=== PATIENT | male | born 1985 | race Caucasian/White ===

== ENCOUNTER 2017-10-04 09:28 | Inpatient (IN) | payer OTHER, SELFPAY ==
[2017-09-21 13:39] VITALS: BMI 25.0
[2017-10-04] VITALS (15 sets, daily range): BP systolic 110–132; BP diastolic 59–96; PULSE 80–106; RESP 11–20; TEMP 36.5–36.9; O2SAT 94–99; BMI 25.0
--- NOTE | 2017-10-04 | DI.RAD.S_ITS ---
PROCEDURE: XR LUMBAR SPINE 2-3V INDICATIONS: L5-S1 TLIF TECHNIQUE: 2 views of the lumbar spine were acquired. COMPARISON: [facility] Outside Film, CR, XR LUMBAR SPINE 2 OR 3 VIEWS, 05/18/2017, 9:21. FINDINGS: Bones: AP and lateral views obtained intraoperatively show placement of a disc spacer at L5-S1 with posterior fusion, transpedicular screws and vertical connecting rods L5-S1 bilaterally. Soft tissues: Overlying bowel gas pattern is normal. No suspicious soft tissue calcifications. IMPRESSION: Intraoperative imaging L5-S1 discectomy and fusion Dictated by: Alex Simms M.D. on 10/04/2017 at 15:19 Approved by: Alex Simms M.D. on 10/04/2017 at 15:20
[2017-10-04] MEDS: LACTATED RINGERS 1,000 ML 42 ML IV ×2 (09:54→14:31)
--- NOTE | 2017-10-04 12:18 | PM.PREOP ---
Pre-operative Note Interval Note Pre-op Check: Yes History & Physical Reviewed by Physician, Yes Exam Performed and Yes History & Physical exam performed today by Physician Changes: No
[2017-10-04] MEDS: CEFAZOLIN 2 GM/100 ML FROZ.PIGGY IV ×2 (12:55→22:11)
--- NOTE | 2017-10-04 13:26 | SUR.OPER ---
Prone on spine table, head in foam head support, padded chest and pelvic supports, gel pad at knees, lower legs supported by pillows; nipples, genitalia and toes free of pressure, arms secured on foam padded arm boards at <90 degrees abduction. Tape over blanket at thigh secured to table. gel pad between heels
[2017-10-04] MEDS: BUPIVACAINE LIPOSOME 266 MG/20 ML VIAL INJ (13:37)
[2017-10-04] MEDS: BUPIVACAINE 0.25% W/ EPI VIAL 50 ML INJ (13:40)
--- NOTE | 2017-10-04 14:53 | P.OP_ITS ---
Operative Date/Time/Diagnoses Date of procedure: 10/04/17 Time of procedure: 12:51 Pre-op diagnosis: 1. L5-S1 spinal stenosis 2. L5-S1 spondylosis with radiculopathy Post-op diagnosis: same Procedure & Clinicians Procedure: 1. L5-S1 Postero-lateral and posterior interbody fusion 2. L5-S1 interbody cage placement. 3. L5-S1 decompressive laminectomy with bilateral facetecomies 4. L5-S1 Posterior non-segmental instrumentation 5. [place] of bone marrow from iliac crest 6. Utilization of microsurgical technique and operating microscope Same procedure as scheduled: Yes Indications: Patient has been having chronic back pain and worsening lumbar radiculopathy. Patient failed multiple conservative management with worsening pain weakness and numbness in her lower extremity. Patient has been having difficulty performing activity of daily living. After discussing risks benefits of treatment options, patient elected proceed with surgery. Surgeon: Jamar Del Rosario Subgrade Roller Operator: Lu Cohen'Brien Click Yes if Unassisted: No Anesthesia Type: General Operative Notes Closure Type: primary Specimen(s): none sent Implants & Drains: Globus Revolve screws, Rise cage Applied: catheter Estimated Blood Loss (mL): 50 Blood products transfused: none Procedure in detail: Patient was seen in the preoperative area. Risks and benefits of the surgery was discussed with the patient. Informed consent was obtained from the patient and placed in the chart. Surgical site was marked. Patient was taken to the operative room. General anesthesia was administered. Prophylactic antibiotic was given to the patient less than 30 min before the incision was made. Patient was placed into a prone position on the Eulogio table. Patient's back was then prepped and draped in the sterile fashion. Time- out was performed at this time. Using AP and lateral C-arm imaging the interval between L5-S1 was identified and marked on patient's back. A 2 inch incision 2 in from midline was made on the left side first. The fascia was incised in line with skin incision. Globus MARS retractors was placed inside the incision and docked onto the L5 lamina. Using microsurgical technique and operating microscope, a L5 laminectomy and L5- S1 facetectomy was performed using a Kerrison rongeur. The disc space at L5-S1 was identified. And a total diskectomy was performed at L5-S1 level. The endplates were decorticated using a rasp and shaver. The total diskectomy and decortication was performed at L5-S1 level in order to to accomplish a L5-S1 fusion. The local bone from the laminectomy and facetectomy was saved for local bone grafting. After the total diskectomy and decortication was completed , Globus viacell bone graft material was combined with local bone that was harvested earlier. At this time, a separate skin is incision was made over the iliac crest. A Jamshidi needle was inserted into the iliac crest through a separate skin incision. 5 cc of bone marrow aspiration was obtained through the separate skin incision using a Jamshidi needle from the iliac crest. The bone marrow aspiration was combined with local bone and the via cell bone grafting material. The bone grafting material was placed into the L5-S1 interbody space along with a expandable cage. The cage was expanded to its maximum height using the torque limiting screwdriver. At this time a mirror image incision was made on the right side. The fascia was incised in line with the skin incision. Globus MARS retractor was inserted and docked onto the L5-S1 posterolateral gutter. Using the power drill, posterior- lateral decortication was performed at L5-S1 level until bleeding cortical bone was identified. The remaining bone grafting material was placed into the L5-S1 posterior lateral gutter he order to accomplish posterolateral fusion at the L5- S1 level. Using the double C-arm technique, pedicle screws were placed into the L5-S1 pedicles bilaterally. This was done by placing the Jamshidi needle into the pedicles, then placing the guidewires over the Jamshidi needle, and finally placing the cannulated screws over the guidewires bilaterally. After the pedicle screws were placed, 2 titanium rods was locked into the heads of the pedicle screws using locking caps and torque limiting screwdriver. After all the hardware was placed, and confirmed with AP and lateral C-arm imaging, the wound was then irrigated with sterile normal saline and packed with Ray-Davey gauze for 3 min to accomplish hemostasis. After the gauze was removed the deep fascia was closed with #1 Vicryl suture. The subcutaneous layer was closed with 2-0 Vicryl. The skin was closed with skin noah. Patient tolerated the procedure well. There were no complications. Complications: none Condition: stable Disposition: PACU Plan for aftercare: Admit to inpatient hospital
[2017-10-04] MEDS: fentaNYL 100 MCG/2 ML INJ 50 MCG IV ×2 (15:10→15:15)
[2017-10-04] MEDS: HYDROMORPHONE 2 MG INJ 0.25 MG IV ×4 (15:20→15:35)
[2017-10-04] MEDS: hydrOXYzine 50 MG/ML INJ 25 MG IM (15:30)
--- NOTE | 2017-10-04 16:47 | PC.NURSE ---
patient up to room at 1605, a&ox4, 94% on ra, and rates pain 5/10. patient denies nausea, sob, dizziness even when up ambulating to br. patient mobility is excellent, one person sba with walker. voided successfully in br, 700 ml clear and joseluis. heart rate slightly elevated at 92 bpm but regular. lung sounds are clear, bowel tones present. patient states he feels very hungry. cms intact, patient denies any tingling or numbness, states he feels sensation to ble, demonstrates he can ambulate and wiggle toes. dressing to lower back is c/d/i. patient has been oriented to room and use of call light. patient encouraged to call and not get up by himself. patient instructed on how to get in and out of bed by this RN, no bending at waist, no twisting, etc. will continue to monitor.
[2017-10-04] MEDS: SODIUM CHLORIDE 0.9% 1,000 ML 100 ML IV (17:10)
[2017-10-04] MEDS: hydrOXYzine pamoate 25 MG CAPSULE PO ×2 (17:12→22:08)
[2017-10-04] MEDS: OXYCODONE IR 5 MG TABLET 10 MG PO (18:56)
[2017-10-04] MEDS: DOCUSATE 100 MG CAPSULE PO (22:08)
[2017-10-04] MEDS: SENNOSIDES 8.6 MG TABLET 17.2 MG PO (22:08)
[2017-10-05] VITALS (7 sets, daily range): BP systolic 111–129; BP diastolic 52–69; PULSE 79–95; RESP 16–18; TEMP 36.4–37.1; O2SAT 96–98
[2017-10-05] MEDS: hydrOXYzine pamoate 25 MG CAPSULE PO ×5 (02:11→20:52)
[2017-10-05] MEDS: OXYCODONE IR 5 MG TABLET 10 MG PO ×5 (02:11→20:52)
[2017-10-05] MEDS: ACETAMINOPHEN 325 MG TABLET 650 MG PO ×2 (04:02→09:27)
[2017-10-05] MEDS: SODIUM CHLORIDE 0.9% 1,000 ML 100 ML IV (04:27)
[2017-10-05 05:43] LABS: Hematocrit 40.6 % (41-53); Hemoglobin 14.3 g/dL (13.5-17.5)
[2017-10-05] MEDS: CEFAZOLIN 2 GM/100 ML FROZ.PIGGY IV (06:25)
--- NOTE | 2017-10-05 07:39 | PM.PNPO.1 ---
Subjective Date Patient Seen: 10/05/17 Time Patient Seen: 07:39 Interval history: PD 1. L5-S1 TLIF [address] Dr. Del Rosario. States pain is about 1-2 in bed but when up is very painful. Still some numbness in left leg. present in room. Has not been up with PT yet. Exam Vital Signs (past 8 hours): - 10/05/17 00:04 10/05/17 01:02 10/05/17 04:47 Temperature 97.6 F 98.0 F Pulse Rate 90 85 Respiratory Rate 18 18 Blood Pressure 121/52 H 127/64 H Pulse Oximetry 96 96 98 Oxygen Delivery Method Room Air Oxygen Flow Rate 0 Narrative Exam Narrative: Pt in bed. A&O x3. Back dressing CDI. Numbness in left foot. 5/5 BLE. Samson calves soft and nontender. Objective Labs Result Diagrams: 10/05/17 05:27 Labs: Laboratory Results - last 24 hr 10/05/17 05:27 Hgb 14.3 Hct 40.6 L Assessment & Plan Post-op Postoperative Procedures Operation Date: 10/04/17 11:45 Actual Procedures Side Surgeon p L5-S1 TLIF Not Applicable Jamar Del Rosario MD PD 1. Continue pain meds. Ambulate with PT. DVT prophylaxis with foot pumps. Plan for d/c home tomorrow. Time Spent With Patient less than 15 minutes
[2017-10-05] MEDS: DOCUSATE 100 MG CAPSULE PO ×2 (09:22→20:51)
--- NOTE | 2017-10-05 09:50 | PT.IIE ---
Current Diagnoses Other spondylosis with radiculopathy, lumbar region (10/04/17) Spinal stenosis, lumbar region without neurogenic claudication (10/04/17) Surgery Performed Operation Date: 10/04/17 11:45 Actual Procedures p L5-S1 TLIF(Not Applicable) - Jamar Del Rosario MD Surgical History (Last Updated 09/21/17 @ 14:16 by Francisca Stinson, RN) H/O right inguinal hernia repair (Acute) History of appendectomy (Acute) S/P epidural steroid injection (Acute) Medical History (Last Updated 09/21/17 @ 14:25 by Francisca Stinson, RN) Back pain (Acute) History of hepatitis A (Acute ~2004) Lumbar disc disease with radiculopathy (Acute) Osteoarthritis of spine with radiculopathy, lumbar region (Acute) Palpitations (Acute) Spinal stenosis of lumbar region with radiculopathy (Acute) Physical Therapy Inpatient Evaluation/Re-Eval Medical Review Prior Functional Status Medical History Reviewed Yes Diet/Fluid Consistency Regular Communication no known deficits Mobility and Gait completely independent Activities of Daily Living and IADL's completely independent Prior Functional Level (Other details) 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 Additional Social History Comment Has an adjustable bed at home Physical Therapy Current Condition Current Condition Evaluation Date 10/05/17 Treatment Diagnosis L5-S1 lami-fusion Onset Date 10/04/17 Precautions Lumbar Precautions Log Roll No Twisting Limit Bending Lifting Restriction of 10 lbs Gait Belt above Incisional Area Weight Bearing Status Weight Bearing Status Weight Bear as Tolerated Subjective Physical Therapy Visit Type Type Initial Evaluation Visit Start Time 08:30 Visit Stop Time 09:02 Total Visit Minutes 32 Physical Therapy Visit Comments Patient Comments Pt reports doing well, expressing interest in figuring out what his future activity restrictions are going to be. Short Term Goals go home Therapy Pain Assessment Pain When Pain Assessed During Mobility Pain Present Pain Present Pain Reported Location Back Intensity 4 Scale Used Numeric (1 - 10) Description Aching Pressure Tender With Movement Pain Management Techniques Apply Cold Modification of Treatment Re-positioning Timing of Activity with Medications PT-Bed Mobility Assessment Rolling Type of Rolling Log Rolling Level of Assist Independent Supine to Sit Supine to Sit Independent Sit to Supine Sit to Supine Independent Scooting Scooting to Edge of Bed Independent PT-Transfer Assessment Sit to and From Stand Sit to and from Stand Independent Equipment Transfer Assistive Device None Transfers Transfer Destination Chair Transfer Technique Stand Step Pivot Transfer Ability Level of Assist Independent Comments Mobility Comments Pt is a little slow but able to complete all mobility without physical assist, and very stable. Gait Assessment Gait Gait Assistance Required: Independent Distance (Feet) (feet) 225 Assistive Devices Assistive Device None Gait Deviations General Gait Pattern Within Normal Limits Factors Limiting Gait Function Factors Limiting Gait Function Decreased Sensation Decreased Strength Comments Gait Comments Pt is stable overall with gait but does look to have a little instability in the L knee, but not enough to affect balance. Pt also reports ongoing numbness in the L toes but can now feel L heel where as before he was unable to do so. Stair Climbing Assessment Evaluation Level of Assist On Stairs Independent Devices Stair Climbing Assistive Devices None Technique/Endurance Stair Climbing Direction Descend Stair Climbing Technique Step to Step PT-Balance Assessment Sitting Balance and Reactions Static Sitting Balance Ability Normal Dynamic Sitting Balance Ability Normal Standing Balance and Reactions Static Standing Balance Ability Normal Dynamic Standing Balance Ability Good Orientation Orientation/Cognition Level of Alertness Alert Orientation Name Age Birthday Month Date Year Day of Week Place Situation Language Function Ability No Deficits Noted Safety Awareness Understands Safety Issues Memory Description No Deficits Noted Gross Range of Motion Upper Extremity ROM Assessment Within Functional Limits Lower Extremity ROM Assessment Within Functional Limits Strength Upper Extremity Strength Assessment Within Functional Limits Comments Strength Comments BLE not formally assessed but functionally WNL, there was observed L knee instability Physical Therapy Treatment Education Education Provided Precautions Post-Op Packet Safety PT Summary Assessment and Plan Potential Rehabilitation Potential Excellent Status of Condition at Evaluation Stable Summary Impairments Pain Strength Sensation Progress Towards Goals Safe For Discharge Goals Met Assessment Summary Pt is POD#1 for L5-S1 posterolateral lami and posterior interbody fusion. Despite increased pain levels with mobility, pt is able to perform bed mobility, transfers, and gait at an independent level. Pt able to repeat back all precautions and rationale behind them, as well as demo ideal movement strategies for all functional movements. While pt is doing well with mobility, he is below his reported functional baseline. Patient does have potential for functional improvement. Pt is safe to discharge home but recommend pt participate in outpatient PT to optimize pelvic/core stability and movement strategies as well as prevent future injury. Pt in agreement with this plan. Goals Bed Mobility Goal Independent Transfer Goal Independent Gait Goal Independent Frequency of Treatment Frequency Of Treatment Discharge Recommendations To Nursing Amount of Assist Needed Independent Discharge Recommendations PT Discharge Recommendations Home with Assistance Outpatient PT
--- NOTE | 2017-10-05 10:49 | OT.IP.EVAL ---
Current Diagnoses Other spondylosis with radiculopathy, lumbar region (10/04/17) Spinal stenosis, lumbar region without neurogenic claudication (10/04/17) Surgery Performed Operation Date: 10/04/17 11:45 Actual Procedures p L5-S1 TLIF(Not Applicable) - Jamar Del Rosario MD Past Medical History (Last Updated 09/21/17 @ 14:25 by Francisca Stinson, RN) Back pain (Acute) History of hepatitis A (Acute ~2004) Lumbar disc disease with radiculopathy (Acute) Osteoarthritis of spine with radiculopathy, lumbar region (Acute) Palpitations (Acute) Spinal stenosis of lumbar region with radiculopathy (Acute) Surgical History (Last Updated 09/21/17 @ 14:16 by Francisca Stinson, RN) H/O right inguinal hernia repair (Acute) History of appendectomy (Acute) S/P epidural steroid injection (Acute) Occupational Therapy Inpatient Evaluation/Re-Eval M1 PT/OT-IP Prior Functional Status Start: 10/05/17 08:32 Freq: NEEDED Status: Active Protocol: Document 10/05/17 10:49 PJM (Rec: 10/05/17 15:53 PJM [id number]) Medical Review Prior Functional Status Medical History Reviewed Yes Diet/Fluid Consistency Regular Communication WNL Mobility and Gait completely independent Activities of Daily Living and IADL's completely independent Prior Functional Level (Other details) 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 M2 OT-IP Current Condition Start: 10/05/17 15:42 Freq: Status: Active Protocol: Document 10/05/17 10:49 PJM (Rec: 10/05/17 15:53 PJM [id number]) Occupational Therapy Current Condition Current Condition Evaluation Date 10/05/17 Treatment Diagnosis decreased self care after L5- S1 TLIF Diagnosis Onset Date 10/04/17 Post Operative Precautions Lumbar Precautions Log Roll No Twisting Limit Bending Lifting Restriction of 10 lbs Gait Belt above Incisional Area Weight Bearing Status Weight Bearing Status Weight Bear as Tolerated M3 OT- IP Subjective and Pain Start: 10/05/17 15:42 Freq: Status: Active Protocol: Document 10/05/17 10:49 PJM (Rec: 10/05/17 15:53 PJM [id number]) OT- Subjective Occupational Therapy Visit Type Type Initial Evaluation Visit Start Time 10:10 Visit Stop Time 10:49 Total Visit Minutes 39 Occupational Therapy Visit Comments Patient Comments I am pretty comfortable in this position in bed. We have an adjustable power bed at home. Patient/Caregiver Goals to return to work, be able to golf OT Pain Assessment Pain When Pain Assessed At Rest Pain Present Pain Present Pain Reported Location Back Intensity 2 Scale Used Numeric (1 - 10) Description Aching M4 OT- IP ADL's Start: 10/05/17 15:42 Freq: Status: Active Protocol: Document 10/05/17 10:49 PJM (Rec: 10/05/17 15:53 PJM [email or web address]) OT [id number] General Evaluation Self-Feeding Ability Independent OT ADL-Grooming General Evaluation Grooming Ability Independent Comments OT Grooming Comments provided education re: body mechanics at sink OT ADL-Oral Care General Eval Oral Care Ability Independent Comments Oral Care Comments provided education re: body mechanics at sink OT ADL-Dressing General Eval Upper Body Dressing Ability Independent Lower Body Dressing Ability Minimal Assistance Areas Needing Assistance Socks Comments OT Dressing Comments Pt declines packaging assembler or sock aid as will provide 24 hr assist at home. He wears slip on shoes OT ADL-Toileting General Evaluation Toileting Ability Independent Comments OT Toileting Comments Provided education re: body mechanics OT ADL-Bathing Comments OT Bathing Comments pt declined; provided education re: body mechanics; will obtain long bath sponge for pt PRN M5 OT- IP IADL's Start: 10/05/17 15:42 Freq: Status: Active Protocol: Document 10/05/17 10:49 PJM (Rec: 10/05/17 15:53 PJM [id number]) OT-Instrumental Activities of Daily Living Deficits IADL Deficits Identified Deficits Home Safety Awareness Awareness of Need for Assistance at Home Good Awareness Ability to Problem Solve Emergency Able to Problem Solve Situations Medication Management Medication Management No Deficits Identified Money Management Money Management No Deficits Identified Meal Preparation Meal Preparation Caregiver Provides Assist Yard Spotter Yard Spotter Caregiver Provides Assist Driving Driving Caregiver Provides Assist Driving Comments until pt able M6 OT- IP Functional Cognition Start: 10/05/17 15:42 Freq: Status: Active Protocol: Document 10/05/17 10:49 PJM (Rec: 10/05/17 15:53 PJM [id number]) Cognitive Factors Limiting Selfcare Function Cognitive Ability Level of Alertness Alert Patient Orientation Name Age Birthday Month Date Year Day of Week Place Situation Attention Span Ability Capable of Focused Attention Capable of Sustained Attention Ability to Follow Commands Able to Follow One Step Commands Memory Description No Deficits Noted Safety Awareness No Deficits Noted Executive Function Ability No Deficits Noted Cognitive Comments Cognitive Assessment Comments Pt recalls and states 3/3 lumbar precautions. OT- Vision and Hearing OT- Hearing Assessment OT- Hearing Assessment WFL OT- Vision Assessment Visual Acuity WFL M7 OT- IP Mobility and Balance Start: 10/05/17 15:42 Freq: Status: Active Protocol: Document 10/05/17 10:49 PJM (Rec: 10/05/17 15:53 PJM NR) OT-Transfer Assessment Technique Transfer Destination Car Toilet Comments Mobility Comments Provided education re: resources for raised toilet seat for pt use at home, sitting posture and chair selection. OT- Gait Assessment Comments Gait Ability Comments See P.T. note OT- Balance Assessment Comments Other Balance Tests/Deviations/Treatment See P.T. note : M8 OT- IP Objective Assessments Start: 10/05/17 15:42 Freq: Status: Active Protocol: Document 10/05/17 10:49 PJM (Rec: 10/05/17 15:53 PJM [email or web address]) OT Gross Range of Motion Upper Extremity Range of Motion Assessment Within Functional Limits OT Strength Upper Extremity Strength Assessment Within Functional Limits OT- Coordination Assessment Comments Coordination Comments BUE WFL OT-Muscle Tone Assessment Muscle Tone WNL Yes OT Sensation Assessment Comments Summary Comments Pt denies deficits in BUEs Edema Edema Absent M9 OT- IP Assessment and Plan Start: 10/05/17 15:42 Freq: Status: Active Protocol: Document 10/05/17 10:49 PJM (Rec: 10/05/17 15:53 PJM NR) OT Summary Assessment and Plan Potential Rehabilitation Potential Good Analytic Complexity at Evaluation Low Summary OT Impairments Pain Assessment Summary Low complexity evaluation and all OT education completed in one session with pt/ re: lumbar spine precautions, body mechanics, adapted ADL techniques and equipment options. Pt plans to discharge home tomorrow with 24 hr assist from capable . No further OT services needed. Treatment Plan Other Treatment Recommendations and Next D/C OT Treatment Focus Discharge Recommendations OT Discharge Recommendations Home with Assistance Home Equipment Needs to obtain RTS and long bath sponge for pt PRN.
--- NOTE | 2017-10-05 14:18 | CM.DANOTE ---
DCP/Assessment: Reviewed chart. Patient admitted to [facility] for TLIF performed on 10-04-[address] Del Rosario. PCP is Dr. Phipps at the [facility]. Primary payor is 1)[employer]. Met with patient and spouse at bedside explained CM/SW role. Patient alert and oriented at time of visit. Patient reports that he is currently active . Patient reports that he plans to go home when medically stable. Patient reports that he is ambulating in hallway. Patient denies the need for a walker but spouse interested in borrowing DME i.e. shower bench. Patient and spouse have loan closet information for [employer]. Spouse plans to call this afternoon. P: Anticipate home when stable. ELGIN Gomes
--- NOTE | 2017-10-05 19:10 | PC.NURSE ---
Angelica shift- Pt up indep for BRP and ambulating in hallways. VSS, CMS ++, Lower back coversite drsg CDI. Uses call light for needs. Call light in reach.
[2017-10-05] MEDS: SENNOSIDES 8.6 MG TABLET 17.2 MG PO (20:51)
[2017-10-05] MEDS: SODIUM CHLORIDE 0.9% FLUSH 10 ML IV (21:12)
[2017-10-06 00:10] VITALS: BP 127/66; PULSE 86; RESP 16; TEMP 36.7; O2SAT 98
[2017-10-06] MEDS: OXYCODONE IR 5 MG TABLET 10 MG PO ×4 (00:14→12:56)
[2017-10-06] MEDS: hydrOXYzine pamoate 25 MG CAPSULE PO ×2 (00:15→05:03)
[2017-10-06 04:50] VITALS: BP 127/69; PULSE 86; RESP 16; TEMP 36.6; O2SAT 98
--- NOTE | 2017-10-06 07:38 | PM.DS.1 ---
History of Present Illness Date Patient Seen: 10/06/17 Time Patient Seen: 07:38 Chief complaint: [id number] Narrative: Patient is a 32-year-old male with a history of low back pain. He failed conservative measures and elected to proceed with the L5-S1 TLIF with Dr. Del Rosario at [facility]. Details of the patient's H&P can be found in the chart. Discharge Providers Date of admission: 10/04/17 09:28 Consults: 10/04/17 16:02 Consult to Occupational Therapy Evaluate & Treat Comment: Physician Instructions: Evaluate and treat Consult to Physical Therapy Evaluate & Treat Comment: Physician Instructions: Evaluate and Treat Discharge provider: Mallorie Hitchcock PA-C Summary Discharge Diagnosis: L5-S1 spinal stenosis L5-S1 spondylosis with radiculopathy Hospital Course: Patient was admitted taken to the operating room where he had L5-S1 TLIF with Dr. Del Rosario. He recovered well was transferred to floor for further care. Postop day 2 pain was under control. Patient was eating and drinking, ambulating well and urinating without difficulty. He was ready to be discharged home. He will be discharged home with rxs for oxycodone and vistaril. He will f/u in the office in 10-14 days. Status at Discharge Cognitive/behavioral status at discharge: A&O x3. Functional status at discharge: uses cane/walker Overall status at discharge: patient is progressing back to baseline Time Spent with Patient Less than 30 minutes Exam Vital Signs (past 8 hours): - 10/06/17 00:10 10/06/17 04:50 Temperature 98.1 F 97.9 F Pulse Rate 86 86 Respiratory Rate 16 16 Blood Pressure 127/66 H 127/69 H Pulse Oximetry 98 98 Oxygen Delivery Method Room Air Oxygen Flow Rate 0 Narrative Exam Narrative: Patient in bed. Appears comfortable. Alert and orient x3. Vac dressing clean dry and intact. Some numbness in the left foot. 5/5 BLE. Bilateral calves soft and nontender. Good distal pulses. Objective Labs Result Diagrams: 10/05/17 05:27 Discharge Plan Discharge Plan Patient Disposition: Home, Self-Care Discharge comment: Do not take anti-inflammatories for 90 days postop. Discharge Med Rec/Prescriptions Prescriptions: New acetaminophen 325 mg Tablet 650 mg PO Q6HR PRN (Reason: Pain, Mild (1-3)) Qty: 0 RF: 0 hydroxyzine pamoate 25 mg Capsule 25 mg PO Q4HR PRN (Reason: Nausea And Vomiting) Qty: 40 RF: 0 oxycodone 10 mg tablet 10 mg PO Q3-4H PRN (Reason: Pain, Severe (7-10)) Qty: 60 RF: 0 Continue fluticasone [Flonase Allergy Relief] 50 mcg/actuation [place],Suspension 2 spray INTRANASAL DAILY RF: 0 Discontinued naproxen sodium [Aleve] 220 mg Tablet 440 mg PO PRN PRN (Reason: Pain) RF: 0 Follow up/Referrals: Jamar Del Rosario MD [Physician] - (Follow-up as scheduled time and date. Contact office with any issues or concerns.) Provider Discharge Instructions Diet: Diet as Tolerated Activity: Activity as tolerated. Ambulate with assistance of a walker/cane. No bending, lifting or twisting. Cold/Heat Therapy: Apply ice as needed for pain and swelling. Wound Care Report to your healthcare provider any signs of infection, such as:: chills, fever, increased pain and unusual drainage Dressing: Keep dressing intact. May shower. Visit Report/Discharge Packet Instructions: DI for Transforaminal Lumbar Interbody Fusion Visit Report Forms: Stroke Signs & Symptoms Discharge Data Attending Provider: Jamar Del Rosario Admit Date/Time: 10/04/17 09:28
--- NOTE | 2017-10-06 07:41 | P.DS_ITS ---
History of Present Illness Date Patient Seen: 10/06/17 Time Patient Seen: 07:38 Chief complaint: [id number] Narrative: Patient is a 32-year-old male with a history of low back pain. He failed conservative measures and elected to proceed with the L5-S1 TLIF with Dr. Del Rosario at [facility]. Details of the patient's H&P can be found in the chart. Discharge Providers Date of admission: 10/04/17 09:28 Consults: 10/04/17 16:02 Consult to Occupational Therapy Evaluate & Treat Comment: Physician Instructions: Evaluate and treat Consult to Physical Therapy Evaluate & Treat Comment: Physician Instructions: Evaluate and Treat Discharge provider: Mallorie Hitchcock PA-C Summary Discharge Diagnosis: L5-S1 spinal stenosis L5-S1 spondylosis with radiculopathy Hospital Course: Patient was admitted taken to the operating room where he had L5-S1 TLIF with Dr. Del Rosario. He recovered well was transferred to floor for further care. Postop day 2 pain was under control. Patient was eating and drinking, ambulating well and urinating without difficulty. He was ready to be discharged home. He will be discharged home with rxs for oxycodone and vistaril. He will f/u in the office in 10-14 days. Status at Discharge Cognitive/behavioral status at discharge: A&O x3. Functional status at discharge: uses cane/walker Overall status at discharge: patient is progressing back to baseline Time Spent with Patient Less than 30 minutes Exam Vital Signs (past 8 hours): - 10/06/17 00:10 10/06/17 04:50 Temperature 98.1 F 97.9 F Pulse Rate 86 86 Respiratory Rate 16 16 Blood Pressure 127/66 H 127/69 H Pulse Oximetry 98 98 Oxygen Delivery Method Room Air Oxygen Flow Rate 0 Narrative Exam Narrative: Patient in bed. Appears comfortable. Alert and orient x3. Vac dressing clean dry and intact. Some numbness in the left foot. 5/5 BLE. Bilateral calves soft and nontender. Good distal pulses. Objective Labs Result Diagrams: 10/05/17 05:27 Discharge Plan Discharge Plan Patient Disposition: Home, Self-Care Discharge comment: Do not take anti-inflammatories for 90 days postop. Discharge Med Rec/Prescriptions Prescriptions: New acetaminophen 325 mg Tablet 650 mg PO Q6HR PRN (Reason: Pain, Mild (1-3)) Qty: 0 RF: 0 hydroxyzine pamoate 25 mg Capsule 25 mg PO Q4HR PRN (Reason: Nausea And Vomiting) Qty: 40 RF: 0 oxycodone 10 mg tablet 10 mg PO Q3-4H PRN (Reason: Pain, Severe (7-10)) Qty: 60 RF: 0 Continue fluticasone [Flonase Allergy Relief] 50 mcg/actuation [place],Suspension 2 spray INTRANASAL DAILY RF: 0 Discontinued naproxen sodium [Aleve] 220 mg Tablet 440 mg PO PRN PRN (Reason: Pain) RF: 0 Follow up/Referrals: Jamar Del Rosario MD [Physician] - (Follow-up as scheduled time and date. Contact office with any issues or concerns.) Provider Discharge Instructions Diet: Diet as Tolerated Activity: Activity as tolerated. Ambulate with assistance of a walker/cane. No bending, lifting or twisting. Cold/Heat Therapy: Apply ice as needed for pain and swelling. Wound Care Report to your healthcare provider any signs of infection, such as:: chills, fever, increased pain and unusual drainage Dressing: Keep dressing intact. May shower. Visit Report/Discharge Packet Instructions: DI for Transforaminal Lumbar Interbody Fusion Visit Report Forms: Stroke Signs & Symptoms Discharge Data Attending Provider: Jamar Del Rosario Admit Date/Time: 10/04/17 09:28
[2017-10-06 07:54] VITALS: BP 138/78; PULSE 88; RESP 16; TEMP 36.6; O2SAT 98
[2017-10-06] MEDS: DOCUSATE 100 MG CAPSULE PO (09:02)
[2017-10-06] MEDS: SODIUM CHLORIDE 0.9% FLUSH 10 ML IV (09:04)
== END 2017-10-06 13:24 | disposition home or self-care (01) | DRG 455 ==
PROVIDERS: Admitting Provider Orthopaedic Surgery Orthopaedic Surgery of the Spine; Visit Provider Orthopaedic Surgery Orthopaedic Surgery of the Spine
PROC: 0SG30AJ Fusion of Lumbosacral Joint with Interbody Fusion Device, Posterior Approach, Anterior Column, Open Approach (ICD-10-PCS; principal; 2017-10-04 11:45)
DX: M48.07 Spinal stenosis, lumbosacral region (principal); M51.17 Intervertebral disc disorders with radiculopathy, lumbosacral region; M47.27 Other spondylosis with radiculopathy, lumbosacral region
CPT/HCPCS: 36415; 72100; 76001; 85014; 85018; 97116; 97161; 97165; 97535; C1776; C9290; J0330; J0690; J1100; J1170; J2405; J2704; J3010; J3410

== ENCOUNTER 2018-02-06 12:23 | Emergency (ER) | payer OTHER, SELFPAY ==
[2017-10-04 13:49] VITALS: BMI 25.0
--- NOTE | 2018-02-06 12:30 | ED.ABDPAIN ---
HPI - Abdominal Pain <SEBASTIAN Amaro - Last Filed: 02/06/18 22:06> General Chief Complaint: Fever Stated Complaint: Fever, nausea, worried about hernia Time Seen by Provider: 02/06/18 12:29 Source: patient Mode of arrival: ambulatory Limitations: no limitations History of Present Illness HPI narrative: 32-year-old male with history of right inguinal hernia that is a nonsmoker here for complaint of increased pain into his right inguinal area over the past few days. He denies any trauma to the area. He denies any recent strenuous activity. He does state that his last bowel movement was approximately 3 days ago. He has had some nausea. And decreased appetite. He was able to tolerate some p.o. intake earlier today with no vomiting. He states that he has had some chills although he has not checked to see if he has had temperature. Pain is limited to the right inguinal area. No abdominal pain. No flank pain. He denies any urinary symptoms. Increased pain with palpation to the area. MD complaint: other Related Data Home Medications Medication Instructions Recorded Confirmed fluticasone [Flonase Allergy 2 spray INTRANASAL DAILY 09/21/17 09/21/17 Relief] Previous Rx's Medication Instructions Recorded acetaminophen 650 mg PO Q6HR PRN #0 tab 10/06/17 hydroxyzine pamoate 25 mg PO Q4HR PRN #40 cap 10/06/17 oxycodone 10 mg PO Q3-4H PRN #60 tab 10/06/17 ondansetron 4 mg PO Q6-8H PRN #10 tab 02/06/18 Allergies Allergy/AdvReac Type Severity Reaction Status Date / Time No Known Drug Allergies Allergy Verified 02/06/18 12:32 Review of Systems <SEBASTIAN Amaro - Last Filed: 02/06/18 22:06> Constitutional Denies chills, Denies fever(s), Denies lethargy and Denies weakness Eyes Denies change in vision, Denies eye discharge, Denies irritation and Denies loss of vision ENT Ears, Nose, Mouth, and Throat: Denies change in voice, Denies neck pain and Denies sore throat Cardiovascular Denies chest pain, Denies irregular heart rhythm, Denies lightheadedness, Denies palpitations, Denies dyspnea, Denies dyspnea on exertion and Denies orthopnea Respiratory Denies cough, Denies dyspnea, Denies dyspnea on exertion and Denies wheezing Gastrointestinal Comments: Right inguinal pain Genitourinary Denies hematuria, Denies flank pain, Denies urinary incontinence and Denies urinary urgency Musculoskeletal Denies neck pain Integumentary/Breasts Denies pruritus, Denies erythema, Denies rash and Denies wounds Neurologic Denies confusion, Denies loss of vision and Denies weakness Psychiatric Denies anxiety, Denies confusion, Denies depression, Denies homicidal ideation and Denies suicidal ideation Endocrine Denies palpitations Hematologic/Lymphatic Denies easy bruising Allergic/Immunologic Denies wheezing Exam <SEBASTIAN Amaro - Last Filed: 02/06/18 22:06> Initial Vital Signs Initial Vital Signs: Vital Signs Temperature 99.1 F 02/06/18 12:32 Pulse Rate 106 H 02/06/18 12:32 Respiratory Rate 19 02/06/18 12:32 Blood Pressure 127/76 02/06/18 12:32 Pulse Oximetry 96 02/06/18 12:32 Const General: cooperative and well developed Nutritional Appearance: well nourished Orientation: alert, awake, oriented x3 and not confused [facility] Mouth: oral mucosae normal and moist mucous membranes Eyes Conjunctivae: conjunctivae normal Sclera: sclerae normal Pupils: PERRL EOM: EOM intact bilaterally Resp Effort & Inspection: normal respiratory effort, able to speak in complete sentences, no respiratory distress and no use of accessory muscles Auscultation: clear to auscultation bilaterally, no rales, no rhonchi and no wheezes Cardio Rate: regular rate Rhythm: regular rhythm Heart Sounds: no click, no gallops, no murmurs and no rubs Pulses: normal peripheral pulses GI Inspection: non-distended Palpation: soft, no hepatosplenomegaly, No guarding, No pulsatile mass and No tender Auscultation: normal bowel sounds General: No CVA tenderness External: no hernia, no inguinal lymphadenopathy, no lesions, no scrotal swelling and tenderness Penis: normal penis Meatus: meatus normal Scrotum: scrotum normal Testes: normal and testicular lie normal Other: Tenderness to the right testicle area on palpation and to the epididymitis. Neuro General: alert, oriented x3, gait normal and no focal motor deficits Speech: speech normal Extrem General: full ROM, no clubbing, cyanosis or edema, no pedal edema and no calf tenderness <Julio Urbina DO - Last Filed: 02/08/18 19:45> Initial Vital Signs Initial Vital Signs: Vital Signs Temperature 99.1 F 02/06/18 12:32 Pulse Rate 106 H 02/06/18 12:32 Respiratory Rate 19 02/06/18 12:32 Blood Pressure 127/76 02/06/18 12:32 Pulse Oximetry 96 02/06/18 12:32 Course <SEBASTIAN Amaro - Last Filed: 02/06/18 22:06> Orders Ordered: Discontinued Medications Sodium Chloride (Normal Saline 0.9%) 1,000 mls @ 1,000 mls/hr IV BOLUS ONE Stop: 02/06/18 13:39 Last Infusion: 02/06/18 14:00 Dose: 0 mls/hr Admin: 02/06/18 12:54 Dose: 1,000 mls/hr Vital Signs - 8 hr 02/06/18 14:31 02/06/18 15:34 Temperature 99.7 F H Pulse Rate 94 H 102 H Respiratory Rate 15 20 Blood Pressure 120/71 Blood Pressure [Right Arm] 138/69 Pulse Oximetry 100 100 <Julio Urbina DO - Last Filed: 02/08/18 19:45> Orders Ordered: Discontinued Medications Sodium Chloride (Normal Saline 0.9%) 1,000 mls @ 1,000 mls/hr IV BOLUS ONE Stop: 02/06/18 13:39 Last Infusion: 02/06/18 14:00 Dose: 0 mls/hr Admin: 02/06/18 12:54 Dose: 1,000 mls/hr Vital Signs - 8 hr 02/06/18 14:31 02/06/18 15:34 Temperature 99.7 F H Pulse Rate 94 H 102 H Respiratory Rate 15 20 Blood Pressure 120/71 Blood Pressure [Right Arm] 138/69 Pulse Oximetry 100 100 MDM - Abdominal Pain <SEBASTIAN Amaro - Last Filed: 02/06/18 22:06> Lab Data Result diagrams: 02/06/18 12:40 02/06/18 12:40 Lab Results 02/06/18 02/06/18 Range/Units 12:40 12:40 WBC 6.6 (4.5-11.0) X10^3/uL RBC 5.65 (4.5-5.9) X10^6/uL Hgb 16.2 (13.5-17.5) g/dL Hct 46.4 (41-53) % MCV 82.1 (80-100) fL MCH 28.6 (26-34) PG MCHC 34.8 (30-36) % RDW 13.7 (11.6-14.8) % Plt Count 153 (150-400) X10^3/uL Neut % (Auto) 66.1 (50-75) % Lymph % (Auto) 15.9 L (25-40) % [place] % (Auto) 17.7 H (3-14) % Eos % (Auto) 0.1 L (2-4) % Baso % (Auto) 0.2 (0-2) % Neut # (Auto) 4400 (2655-5795) /uL Sodium 139 (137-145) mmol/L Potassium 4.2 (3.4-5.1) mmol/L Chloride 99 (98-107) mmol/L Carbon Dioxide 26 (22-32) mmol/L BUN 11 (9-20) mg/dL Creatinine 0.80 (0.66-1.25) mg/dL Estimated GFR > 60.0 (>60) mL/min BUN/Creatinine Ratio 13.8 (6-22) Glucose 127 H (70-100) mg/dL Calcium 9.5 (8.4-10.2) mg/dL Total Bilirubin 0.4 (0.2-1.3) mg/dL AST 21 (17-59) IU/L ALT 27 (21-72) IU/L Alkaline Phosphatase 121 (38-126) U/L Total Protein 7.5 (6.3-8.2) g/dL Albumin 4.6 (3.5-5.0) g/dL Globulin 2.9 (1.7-4.1) g/dL Albumin/Globulin Ratio 1.6 (1.0-2.8) Lipase 29 (23-300) U/L Point of care testing: Urine Dip Bedside Urine Glucose Negative Bedside Urine Bilirubin - Negative Bedside Urine Ketone - Negative Urine Specific [place] 1.010 Bedside Urine Occult Blood - Negative Bedside Urine pH 6.5 Bedside Urine Protein - Negative Bedside Urine Urobilinogen - Negative Bedside Urine Nitrite - Negative Bedside Urine Leukocytes - Negative Esterase Imaging Data CT scan - abdomen: Radiologist's impression: [address] [address] [address] Scan Report Signed Patient: Josee Jin#: [id number] : 1985Acct:[id number] Age/Sex: MDate of Service: 02/06/18 Loc: ED Accession Number: [id number] Procedure: CT abdomen pelvis w con Ordering Provider: Shoaib Castelan PROCEDURE: CT ABDOMEN PELVIS W CON INDICATIONS: Known inguinal hernia increased pain into the right inguinal, lump 8 weeks TECHNIQUE: After the administration of intravenous contrast, 5 mm thick sections acquired from the diaphragm to the symphysis. 5 mm coronal and sagittal reformats were acquired. For radiation dose reduction, the following was used: automated exposure control, adjustment of mA and/or kV according to patient size. COMPARISON: None. FINDINGS: Image quality: Excellent. ABDOMEN: Lung bases: Lung bases are clear. Heart size is normal. Solid organs: Liver is mildly prominent with steatosis. The spleen is also enlarged. There is an ill-defined area of low attenuation along the anterior superior aspect measuring approximately 11 mm. Hounsfield units are greater than expected for a simple cyst. Gallbladder is unremarkable. Biliary system is non dilated. Pancreas enhances normally. Spleen is normal in size and enhancement. No adrenal nodules. Kidneys demonstrate normal size and enhancement, without hydronephrosis. Peritoneum and bowel: Bowel loops demonstrate normal wall thickness and caliber. No free fluid or air. Appendix is not visualized. Multiple right lower quadrant lymph nodes are present the largest measuring approximately 5 mm. Nodes and vessels: No retroperitoneal or mesenteric adenopathy by size criteria. Aorta and inferior vena cava are normal in size. Miscellaneous: No ventral hernias. PELVIS: Genitourinary: Bladder wall thickness is normal. Bilateral hydroceles are present. Miscellaneous: No inguinal hernias or adenopathy. Bones: No suspicious bony lesions. No vertebral body compression fractures. IMPRESSION: 1. No inguinal hernia. 2. Nonvisualization of the appendix. Right lower quadrant lymph nodes are present. Mesenteric adenitis should be considered if appropriate. 3. Ill-defined area of low attenuation within the spleen as above. Hounsfield units are in consistent with simple cysts. This could represent complex cyst, hemangioma or other etiologies such as infection or infarction. Recommend interval followup as clinically indicated for further evaluation. It is considered indeterminate on the basis of this exam. Dictated by: Cassie Roper M.D. on 02/06/2018 at 13:25 Approved by: Cassie Roper M.D. on 02/06/2018 at 13:30 Scrotal ultrasound : Radiologist's impression: [address] [address] Ultrasound Report Signed Patient: Josee Jin#: [id number] : 1985Acct:[id number] Age/Sex: te of Service: 02/06/18 Loc: ED Accession Number: [id number] Procedure: US scrotum Ordering Provider: Shoaib Castelan PROCEDURE: US SCROTUM INDICATIONS: RIGHT TESTICULAR PAIN TECHNIQUE: Real-time scanning was performed of the scrotum and testicles, with image documentation. Color and pulse Doppler interrogation was performed of both testicles. COMPARISON: None. FINDINGS: Right: Testicle is normal in size at 5.2 x 2.2 x 3.2 cm, and homogenous in echotexture. Epididymis is normal in overall size and morphology. No hydrocele or varicoceles. Overlying scrotal skin is normal in thickness. Left: Testicle is normal in size at 5.1 x 2 point by 3.6 cm, and homogeneous in echotexture. Epididymis is normal in overall size and morphology. No hydrocele or varicoceles. Overlying scrotal skin is normal in thickness. Doppler: Color and pulse Doppler demonstrate normal and symmetric arterial flow in both testicles. IMPRESSION: 1. Unremarkable exam. No evidence of torsion at time of exam. Intermittent torsion cannot be excluded. Dictated by: Cassie Roper M.D. on 02/06/2018 at 15:10 Approved by: Cassie Roper M.D. on 02/06/2018 at 15:10 [facility] Narrative Medical decision making narrative: CBC and Chem panel and lipase were obtained were unremarkable. CT of the abdomen and pelvis was obtained and does not show any inguinal hernia. CT does show a cyst to the spleen the does not appear to be a simple cyst. Will have patient follow up with primary care provider for supervision of the cyst. CT does show lymph nodes to the right lower quadrant. Presents as mesenteric adenitis so will treat for a viral illness. Urinalysis was negative for urinary tract infection. He is prescribed Zofran to help with the nausea and vomiting. Use [id number] Tylenol as needed for any discomfort. No hernia is appreciated on CT at this time Follow up with primary care provider later this week for re-evaluation. Patient also did have some pain radiating down into his right testicle area. Ultrasound of the testicles was negative for any acute findings. For any worsening symptoms return to the emergency room. <Julio Urbina, DO - Last Filed: 02/08/18 19:45> Lab Data Lab Results 02/06/18 02/06/18 Range/Units 12:40 12:40 WBC 6.6 (4.5-11.0) X10^3/uL RBC 5.65 (4.5-5.9) X10^6/uL Hgb 16.2 (13.5-17.5) g/dL Hct 46.4 (41-53) % MCV 82.1 (80-100) fL MCH 28.6 (26-34) PG MCHC 34.8 (30-36) % RDW 13.7 (11.6-14.8) % Plt Count 153 (150-400) X10^3/uL Neut % (Auto) 66.1 (50-75) % Lymph % (Auto) 15.9 L (25-40) % [place] % (Auto) 17.7 H (3-14) % Eos % (Auto) 0.1 L (2-4) % Baso % (Auto) 0.2 (0-2) % Neut # (Auto) 4400 (9396-8067) /uL Sodium 139 (137-145) mmol/L Potassium 4.2 (3.4-5.1) mmol/L Chloride 99 (98-107) mmol/L Carbon Dioxide 26 (22-32) mmol/L BUN 11 (9-20) mg/dL Creatinine 0.80 (0.66-1.25) mg/dL Estimated GFR > 60.0 (>60) mL/min BUN/Creatinine Ratio 13.8 (6-22) Glucose 127 H (70-100) mg/dL Calcium 9.5 (8.4-10.2) mg/dL Total Bilirubin 0.4 (0.2-1.3) mg/dL AST 21 (17-59) IU/L ALT 27 (21-72) IU/L Alkaline Phosphatase 121 (38-126) U/L Total Protein 7.5 (6.3-8.2) g/dL Albumin 4.6 (3.5-5.0) g/dL Globulin 2.9 (1.7-4.1) g/dL Albumin/Globulin Ratio 1.6 (1.0-2.8) Lipase 29 (23-300) U/L Point of care testing: Urine Dip Bedside Urine Glucose Negative Bedside Urine Bilirubin - Negative Bedside Urine Ketone - Negative Urine Specific [place] 1.010 Bedside Urine Occult Blood - Negative Bedside Urine pH 6.5 Bedside Urine Protein - Negative Bedside Urine Urobilinogen - Negative Bedside Urine Nitrite - Negative Bedside Urine Leukocytes - Negative Esterase Discharge Plan Departure Patient Disposition: Home Clinical Impression: Acute mesenteric adenitis, Inguinal pain Discharge Date/Time: 02/06/18 15:34 Interventions: ED Discharge Assessment Last Done: 02/06/18 15:34 Instructions: DI for Mesenteric Adenitis-Adult Activity Restrictions/Additional Instructions: CT today showed no inguinal hernia present at this current time. CT also shows lymph nodes to the right lower quadrant area indicating viral illness. CT also showed a cyst to your spleen area that needs to be supervised. Follow up with her primary care provider. Will need to have repeat imaging to ensure that it is stable. Use [id number] Tylenol as needed for any discomfort. Use prescribed Zofran as needed for the nausea follow up with primary care provider later this week for re-evaluation. Ultrasound of the testicular area was negative for any acute findings. Return emergency room for any worsening symptoms. Prescriptions: New ondansetron 4 mg tablet,disintegrating 4 mg PO Q6-8H PRN (Reason: nausea and vomiting) Qty: 10 RF: 0 No Action fluticasone [Flonase Allergy Relief] 50 mcg/actuation [place],Suspension 2 spray INTRANASAL DAILY RF: 0 acetaminophen 325 mg Tablet 650 mg PO Q6HR PRN (Reason: Pain, Mild (1-3)) Qty: 0 RF: 0 hydroxyzine pamoate 25 mg Capsule 25 mg PO Q4HR PRN (Reason: Nausea And Vomiting) Qty: 40 RF: 0 oxycodone 10 mg tablet 10 mg PO Q3-4H PRN (Reason: Pain, Severe (7-10)) Qty: 60 RF: 0 Referrals: [facility] [Provider Group] <Julio Urbina, DO - Last Filed: 02/08/18 19:45> Cosign ED Attending [place] Attestation: I was available for consultation during this patient's emergency department encounter
[2018-02-06 12:32] VITALS: BP 127/76; PULSE 106; RESP 19; TEMP 37.3; O2SAT 96; BMI 24.4
--- NOTE | 2018-02-06 12:42 | DI.CT.S_ITS ---
PROCEDURE: CT ABDOMEN PELVIS W CON INDICATIONS: Known inguinal hernia increased pain into the right inguinal, lump 8 weeks TECHNIQUE: After the administration of intravenous contrast, 5 mm thick sections acquired from the diaphragm to the symphysis. 5 mm coronal and sagittal reformats were acquired. For radiation dose reduction, the following was used: automated exposure control, adjustment of mA and/or kV according to patient size. COMPARISON: None. FINDINGS: Image quality: Excellent. ABDOMEN: Lung bases: Lung bases are clear. Heart size is normal. Solid organs: Liver is mildly prominent with steatosis. The spleen is also enlarged. There is an ill-defined area of low attenuation along the anterior superior aspect measuring approximately 11 mm. Hounsfield units are greater than expected for a simple cyst. Gallbladder is unremarkable. Biliary system is non dilated. Pancreas enhances normally. Spleen is normal in size and enhancement. No adrenal nodules. Kidneys demonstrate normal size and enhancement, without hydronephrosis. Peritoneum and bowel: Bowel loops demonstrate normal wall thickness and caliber. No free fluid or air. Appendix is not visualized. Multiple right lower quadrant lymph nodes are present the largest measuring approximately 5 mm. Nodes and vessels: No retroperitoneal or mesenteric adenopathy by size criteria. Aorta and inferior vena cava are normal in size. Miscellaneous: No ventral hernias. PELVIS: Genitourinary: Bladder wall thickness is normal. Bilateral hydroceles are present. Miscellaneous: No inguinal hernias or adenopathy. Bones: No suspicious bony lesions. No vertebral body compression fractures. IMPRESSION: 1. No inguinal hernia. 2. Nonvisualization of the appendix. Right lower quadrant lymph nodes are present. Mesenteric adenitis should be considered if appropriate. 3. Ill-defined area of low attenuation within the spleen as above. Hounsfield units are in consistent with simple cysts. This could represent complex cyst, hemangioma or other etiologies such as infection or infarction. Recommend interval followup as clinically indicated for further evaluation. It is considered indeterminate on the basis of this exam. Dictated by: Cassie Roper M.D. on 02/06/2018 at 13:25 Approved by: Cassie Roper M.D. on 02/06/2018 at 13:30
[2018-02-06] MEDS: SODIUM CHLORIDE 0.9% 1,000 ML 1000 ML IV (12:54)
[2018-02-06 13:09] LABS: Alanine Aminotransferase 27 IU/L (21-72); Albumin 4.6 g/dL (3.5-5.0); Albumin Globulin Ratio 1.6 (1.0-2.8); Alkaline Phosphatase 121 U/L (38-126); Aspartate Aminotransferase 21 IU/L (17-59); BUN Creatinine Ratio 13.8 (6-22); Bilirubin Total 0.4 mg/dL (0.2-1.3); Blood Urea Nitrogen 11 mg/dL (9-20); Calcium 9.5 mg/dL (8.4-10.2); Carbon Dioxide 26 mmol/L (22-32); Chloride 99 mmol/L (98-107); Estimated Glomerular Filt Rate > 60.0 mL/min (>60); Globulin 2.9 g/dL (1.7-4.1); Glucose 127 mg/dL (70-100); HEMOLYSIS < 15 (0-50); Lipase 29 U/L (23-300); Potassium 4.2 mmol/L (3.4-5.1); Sodium 139 mmol/L (137-145); Total Protein 7.5 g/dL (6.3-8.2)
[2018-02-06 13:11] LABS: Add Manual Diff / Slide Review NO; Basophils Percent Auto 0.2 % (0-2); Eosinophils Percent Auto 0.1 % (2-4); Hematocrit 46.4 % (41-53); Hemoglobin 16.2 g/dL (13.5-17.5); Lymphocytes Percent Auto 15.9 % (25-40); Mean Corpuscular HGB Conc 34.8 % (30-36); Mean Corpuscular Hemoglobin 28.6 PG (26-34); Mean Corpuscular Volume 82.1 fL (80-100); Monocytes Percent Auto 17.7 % (3-14); Neutrophils Absolute Auto 4400 /uL (3000-5900); Neutrophils Percent Auto 66.1 % (50-75); Platelet Count 153 X10^3/uL (150-400); Red Blood Cell Count 5.65 X10^6/uL (4.5-5.9); Red Cell Distribution Width 13.7 % (11.6-14.8); White Blood Cell Count 6.6 X10^3/uL (4.5-11.0)
--- NOTE | 2018-02-06 13:32 | DI.US.S_ITS ---
PROCEDURE: US SCROTUM INDICATIONS: RIGHT TESTICULAR PAIN TECHNIQUE: Real-time scanning was performed of the scrotum and testicles, with image documentation. Color and pulse Doppler interrogation was performed of both testicles. COMPARISON: None. FINDINGS: Right: Testicle is normal in size at 5.2 x 2.2 x 3.2 cm, and homogenous in echotexture. Epididymis is normal in overall size and morphology. No hydrocele or varicoceles. Overlying scrotal skin is normal in thickness. Left: Testicle is normal in size at 5.1 x 2 point by 3.6 cm, and homogeneous in echotexture. Epididymis is normal in overall size and morphology. No hydrocele or varicoceles. Overlying scrotal skin is normal in thickness. Doppler: Color and pulse Doppler demonstrate normal and symmetric arterial flow in both testicles. IMPRESSION: 1. Unremarkable exam. No evidence of torsion at time of exam. Intermittent torsion cannot be excluded. Dictated by: Cassie Roper M.D. on 02/06/2018 at 15:10 Approved by: Cassie Roper M.D. on 02/06/2018 at 15:10
[2018-02-06 14:31] VITALS: BP 138/69; PULSE 94; RESP 15; TEMP 37.6; O2SAT 100
[2018-02-06 15:34] VITALS: BP 120/71; PULSE 102; RESP 20; O2SAT 100
== END 2018-02-06 15:34 | disposition home or self-care (01) ==
PROVIDERS: Emergency Provider Nurse Practitioner Family
DX: I88.0 Nonspecific mesenteric lymphadenitis (principal); R10.30 Lower abdominal pain, unspecified
CPT/HCPCS: 36415; 36591; 74177; 76870; 80053; 81003; 83690; 85025; 96360; 99283; 99285; Q9967

== ENCOUNTER 2018-05-03 10:27 | Day surgery (SDC) | payer OTHER, SELFPAY ==
[2017-10-04 13:49] VITALS: BMI 25.0
[2018-04-27 10:51] VITALS: BMI 25.0
[2018-05-03] VITALS (7 sets, daily range): BP systolic 117–130; BP diastolic 71–86; PULSE 57–113; RESP 12–17; TEMP 36.2–37.5; O2SAT 94–95; BMI 25.0
[2018-05-03] MEDS: LACTATED RINGERS 1,000 ML 42 ML IV (11:13)
[2018-05-03] MEDS: CEFAZOLIN 2 GM/100 ML FROZ.PIGGY IV (11:55)
--- NOTE | 2018-05-03 11:55 | PM.PREOP ---
Pre-operative Note Interval Note History & Physical reviewed/Exam performed by Physician: Yes Changes to H&P: No H&P completed within 30 days and has changed as indicated here:: Patient seen and examined in the preoperative area. Operative site marked accordingly. History physical examination has not changed and placed on the chart. Proceed with right inguinal hernia repair today as planned.
--- NOTE | 2018-05-03 11:56 | PM.HP.1 ---
History of Present Illness Date Patient Seen: 05/03/18 Time Patient Seen: 11:56 Chief complaint: [id number] Hernia Repair Narrative: 33-year-old male with painful intermittent right inguinal mass. He was seen in the office exactly 34 days ago and found to have a right inguinal hernia. Repair was recommended. He presents to the operating room today for such. On further history his pain and massive not changed. Denies any symptoms with regard to abdominal pain, nausea, vomiting, fever, chills, dysuria, or change in bowel habits. Patient History Medical History Hepatitis A (Acute) Pneumonia (Acute) Back pain (Acute) History of hepatitis A (Acute ~2004) Lumbar disc disease with radiculopathy (Acute) Osteoarthritis of spine with radiculopathy, lumbar region (Acute) Palpitations (Acute) Spinal stenosis of lumbar region with radiculopathy (Acute) Surgical History H/O spinal fusion (Acute ~09/2017) History of photorefractive keratectomy (PRK) (Acute ~2011) H/O right inguinal hernia repair (Acute) History of appendectomy (Acute) S/P epidural steroid injection (Acute) Family History Mother Hypertension Grandmother Hypertension Heart disease Social History marital status: household members: spouse and children occupational status: employed Smoking Status: Never smoker alcohol intake: current substance use type: does not use Family & Social History Social History: household members spouse,children Prior Living Arrangements House Safety & Behavioral: Feels Safe in Current Yes Environment Been Physically Hurt or No Threatened By a Person Suicidal Ideation Description None Suicide Plan Description No Plan Tobacco & Substance use: Smoking Status Never smoker alcohol intake current alcohol intake frequency 0-2 drinks per day Substance Use Type does not use Meds Home Medications Medication Instructions Recorded Confirmed Type escitalopram oxalate 10 mg PO DAILY 04/27/18 05/03/18 History prazosin 2 mg PO BEDTIME 04/27/18 05/03/18 History Allergies Allergy/AdvReac Type Severity Reaction Status Date / Time No Known Drug Allergies Allergy Verified 05/03/18 11:16 Review of Systems Review of Systems All systems reviewed & are unremarkable except as noted in HPI and below Exam Vital Signs (past 8 hours): - 05/03/18 11:17 Temperature 97.1 F L Pulse Rate 57 L Respiratory Rate 15 Blood Pressure 121/71 Oxygen Delivery Method Room Air Narrative Exam Narrative: Well-nourished well-developed male in no acute distress. Alert oriented x3. is at the bedside. Sclera nonicteric Regular rate and rhythm. No wheezes Abdomen soft, nondistended, nontender Focused examination of the right inguinal canal reveals reducible tender hernia Extremities show no clubbing, cyanosis, or edema Objective Labs Labs: No new laboratory or radiographic studies for review Assessment & Plan Assessment & Plan narrative: 33-year-old male with symptomatic recurrent right inguinal hernia. Open repair with mesh was recommended. I reviewed the technical details once again. Risks, benefits, alternatives were again explained. Anticipated healing and recovery times reviewed. Postoperative activity restrictions again discussed with the patient and his . All questions answered to his satisfaction, and he voiced understanding. Consent is on the chart. Proceed as planned today.
--- NOTE | 2018-05-03 12:25 | SUR.OPER ---
Supine on padded OR bed, head on pillow, arms secured on padded arm boards at <90 degrees abduction, legs uncrossed, safety belt at thigh, tape over blanket over lower legs.
[2018-05-03] MEDS: CEFAZOLIN 1 GM VIAL IRR (12:30)
[2018-05-03] MEDS: LIDOCAINE 1% W/EPI INJ 20 ML INJ (12:31)
[2018-05-03] MEDS: BUPIVACAINE 0.5% (PF) VIAL 30 ML INJ (12:31)
--- NOTE | 2018-05-03 14:09 | P.OP_ITS ---
Operative Date/Time/Diagnoses Date of procedure: 05/03/18 Time of procedure: 14:03 Pre-op diagnosis: Symptomatic recurrent right inguinal hernia Post-op diagnosis: other (Symptomatic recurrent indirect inguinal hernia with lipoma of the cord) Procedure & Clinicians Procedure: Open right inguinal hernia repair with mesh Same procedure as scheduled: Yes Indications: 33-year-old male who had right inguinal hernia repaired primarily at approximately age 3 years and recently presented with painful intermittent right inguinal mass. Examination and evaluation were consistent with hernia. Open repair with mesh was recommended. Surgeon: Will Styles Click Yes if Unassisted: Yes Anesthesia Type: General Operative Notes Findings: 1. Indirect inguinal hernia on the right side 2. Lipoma of the right spermatic cord 3. No evidence of right direct hernia 4. Testicles in normal descended position bilaterally at the conclusion of the case Closure Type: primary Specimen(s): none sent Prosthetic devices, grafts, tissues, transplants, or devices: Small polypropylene ProLoop mesh plug and patch right inguinal canal Applied: other (Mesh as above) Estimated Blood Loss (mL): 5 Blood products transfused: none Procedure in detail: After obtaining informed consent the patient was brought to the operating room placed supine on the table. After satisfactory induction of anesthesia the abdomen and genitalia were prepped and draped in usual sterile fashion. SCOAP time out was performed per standard protocol. Transverse incision was designed over the lower aspect of the right inguinal canal then infiltrated with a 1-1 mixture 1% lidocaine with 1 :100,000 epinephrine and 0.5% plain Marcaine for postoperative analgesia. Skin incision was created with 10 scalpel blade followed by the Bovie for hemostasis. Dissection proceeded through the subcutaneous tissue to the external oblique fascia and exposure was achieved with the Weitlaner retractor. External oblique fascia was divided in the direction of its fibers with a 15 scalpel blade followed by Metzenbaum scissors. Edges of the fascia were secured with hemostats and elevated into the operative field. Blunt dissection revealed the ilioinguinal nerve and great care was taken to avoid injury to this structure throughout the case. Further blunt dissection revealed the iliopubic tract, conjoined tendon, and rectus fascia. Spermatic cord was then encircled with the surgeon's fingers followed by a Irene drain. Meticulous blunt dissection using the DeBakey forceps was employed to skeletonize the spermatic cord. Findings are as above. Lipoma of the cord was clamped with hemostats, divided with the Bovie, and secured with a single 2 0 Vicryl suture ligature. Indirect hernia sac itself was reduced back into the abdominal cavity easily. Mesh was brought onto the operative field and soaked in Ancef solution. Plug was placed in the internal inguinal ring and secured to adjacent cremasteric fibers with interrupted 2 0 Vicryl suture. Onlay patch was placed over the floor of the inguinal canal and secured circumferentially with interrupted 0 Tycron suture. Anteriorly the mesh was secured to the conjoined tendon while laterally it was secured to the iliopubic tract. Medially the mesh was secured to the rectus fascia. Tails of the mesh were cut to size and placed deep to the external oblique fascia with a was secured with a single 0 Tycron suture. Great care was taken avoid strangulation of the cord through the defect in the mesh. Surgeons finger tip was easily inserted adjacent to the cord at the level of the mesh. Spermatic cord was replaced in its usual anatomic position and the wound was irrigated. Hemostasis was verified. External oblique fascia was closed over the cord in a running fas hion with 3 0 Vicryl suture. Subcutaneous tissue was reapproximated with interrupted 3 0 Vicryl suture. Skin was closed in a running subcuticular fashion with 4 0 Monocryl suture. Dermal adhesive was applied. Anesthesia was reversed and patient extubated in the operating room. He was taken recovery stable condition. Complications: none Condition: stable Disposition: PACU Plan for aftercare: 1. Discharge home 2. Follow up in surgery Clinic in 2 weeks
[2018-05-03] MEDS: OXYCODONE/ACETAMINOPHEN 5/325 TABLET 1 TAB PO (14:11)
--- NOTE | 2018-05-03 15:10 | SUR.PHASEII ---
stable pacu stay, r leg numb, able to bear weight with assist,pt and aware to be careful at home when getting up to prevent falls.
== END 2018-05-03 15:00 | disposition home or self-care (01) ==
PROVIDERS: PCP Family Medicine; Visit Provider Surgery
PROC: (CPT 49520; principal; 2018-05-03 12:15)
DX: K40.90 Unilateral inguinal hernia, without obstruction or gangrene, not specified as recurrent (principal); D17.6 Benign lipomatous neoplasm of spermatic cord
CPT/HCPCS: 49520; C1781; J0690; J1100; J2250; J2405; J2704; J3010